=== PATIENT | female | born 1975 | race Caucasian/White ===

== ENCOUNTER 2022-02-18 14:37 | Emergency (ER) | payer SELFPAY ==
[~2022-02-18] VITALS: Ht 157.5 cm; Wt 77.1 kg
--- NOTE | 2022-02-18 14:37 | NUR ---
PT BIBRA 41 FROM HOME C/O DEPRESSION RECENTLY DX OF CERVICAL CA. PER EMS PT IS BEEN DRINKING FOR 1 WEEK. PT IS AAOX3, NOT IN RESPIRATORY DISTRESS, HOOKED TO V/S MONITOR, KEPT RESTED AND COMFORTABLE. WILL CONTINUE TO MONITOR.
--- NOTE | 2022-02-18 15:04 | NUR ---
COVID SWAB DONE AND SENT TO LAB
--- NOTE | 2022-02-18 15:04 | NUR ---
URINE COLLECTED AND SENT TO LAB
[2022-02-18 15:27] LABS: BASOPHILS % (AUTO) 0.2 % (0.0-2.0); HEMATOCRIT 44 % (33-45); HEMOGLOBIN 14.7 g/dL (11.5-14.8); LYMPHOCYTES # (AUTO) 2.2 K/uL (0.8-4.8); LYMPHOCYTES % (AUTO) 19.3 % (20.0-44.0); MEAN CORPUSCULAR HGB CONC 33 g/dl (31.0-36.0); MEAN CORPUSCULAR VOLUME 85 fL (82-100); MONOCYTES # (AUTO) 0.6 K/uL (0.1-1.30); NEUTROPHILS # (AUTO) 8.5 K/uL (1.8-8.9); NEUTROPHILS % (AUTO) 75.5 % (43.0-81.0); PLATELET COUNT (AUTO) 215 K/uL (150-450); RED BLOOD CELL COUNT(AUTO) 5.21 MIL/uL (4.0-5.2); WHITE BLOOD COUNT (AUTO) 11.3 K/uL (4.3-11.0)
[2022-02-18] MEDS ORDERED: IV NS 0.9% 1,000 ML IV ONE (15:30)
--- NOTE | 2022-02-18 15:31 | NUR ---
IV LINE ESTABLISHED G20 R WRIST.
[2022-02-18 15:36] LABS: ALBUMIN 3.2 g/dL (3.4-5.0); BILIRUBIN,DIRECT 0.2 mg/dL (0.0-0.2); BILIRUBIN,TOTAL 0.8 mg/dL (0.2-1.0); CALCIUM, SERUM 7.8 mg/dL (8.5-10.1); CREATININE 0.7 mg/dL (0.6-1.3); POTASSIUM 3.7 mmol/L (3.5-5.1)
[2022-02-18 15:50] LABS: COLOR,URINE RED (YELLOW)
[2022-02-18 16:15] LABS: BACTERIA,URINE 1+ /HPF (None Seen); RBC,URINE TOO NUMEROUS TO COUN /HPF (0-2)
[2022-02-18] MEDS ORDERED: IV NS 0.9% 500 ML BAG IV ONE (17:00)
--- NOTE | 2022-02-18 17:50 | NUR ---
PT ABLE TO AMBULATE WITH A STEADY GAIT.
--- NOTE | 2022-02-18 17:55 | NUR ---
Ambulatory- Gait even and steady for discharge Patient discharged to home in stable condition. Written and verbal after care instructions given. Patient verbalizes understanding of instruction. here for pickers material handlers
[2022-02-18 17:56] VITALS: BP 127/64
--- NOTE | 2022-02-18 17:56 | NUR ---
IV removed. Catheter intact and site benign. Pressure and 4x4 applied to site. No bleeding noted. Patient discharged to home in stable condition. Written and verbal after care instructions given. Patient verbalizes understanding of instruction.
--- NOTE | 2022-02-18 18:00 | NUR ---
pt at bedside for pt apple picking supervisor.
== END 2022-02-18 18:04 | disposition home or self-care (01) ==
LOC: ER 14:47
DX: F10.229 Alcohol dependence with intoxication, unspecified (principal); E88.89 Other specified metabolic disorders; Y90.8 Blood alcohol level of 240 mg/100 ml or more; C53.9 Malignant neoplasm of cervix uteri, unspecified; K74.60 Unspecified cirrhosis of liver; D72.829 Elevated white blood cell count, unspecified; R31.9 Hematuria, unspecified; R03.0 Elevated blood-pressure reading, without diagnosis of hypertension; R00.0 Tachycardia, unspecified
CPT/HCPCS: 36415; 80048; 80076; 80143; 80307; 80320; 81001; 84703; 85025; 87426; 96360; 96361; 99283; C9803; J7030 ×2; G0480